=== PATIENT | female | born 1970 | race Two or more races ===

== ENCOUNTER → 2017-12-08 | Outpatient (CLI) | payer BC ==
[~2017-12-08] MED LIST: ACET-1600 PO; ALPR0.25 PO; ALPR0.5T6 PO; BIFI4CAP PO; CHLO1CAP PO; CHOL500045 PO; CHOL500050 PO; OMEP40CA6 PO; TURMERIC PO; VARE1TAB21 PO
== END | disposition home or self-care (01) ==
LOC: STAR 14:57
PROVIDERS: ATTEND Specialist
DX: Z02.9 Encounter for administrative examinations, unspecified (principal)

== ENCOUNTER 2017-12-12 07:26 | Day surgery (SDC) | payer BC ==
[~2017-12-12] VITALS: Ht 165.1 cm; Wt 80.0 kg
[~2017-12-12 07:26] MED LIST changes: +BUPIVACAINE 0.25% ONE; +SILVER NITRATE STICK TP ONE
[2017-12-12] MEDS ORDERED: LACTATED RINGERS 1,000 ML IV SCH (07:42)
[2017-12-12 07:59] VITALS: BP 128/84
[2017-12-12] MEDS ORDERED: ACETAMINOPHEN 500 MG TABLET PO ONE (08:00)
[2017-12-12] MEDS ORDERED: ONDANSETRON ODT 8 MG PO ONE (08:00)
[2017-12-12] MEDS ORDERED: PROPOFOL 10 MG/ML, 20ML ONE (08:13)
[2017-12-12] MEDS ORDERED: MIDAZOLAM 1 MG/ML, 2ML ONE (08:13)
[2017-12-12] MEDS ORDERED: FENTANYL PF 100 MCG/2ML ONE ×2 (08:13→09:18)
[2017-12-12] MEDS ORDERED: LIDOCAINE-MPF 2% ,5ML ONE (08:14)
[2017-12-12] MEDS ORDERED: CEFAZOLIN 1,000 MG ONE ×2 (08:14)
[2017-12-12] MEDS ORDERED: EPINEPHRINE 1 MG/ML, 1ML INFIL ONE (09:08)
[2017-12-12] MEDS ORDERED: KETOROLAC 30 MG/1 ML ONE (09:18)
[2017-12-12] MEDS ORDERED: HYDROmorphone 1 MG/ML, 1ML IV PRN (09:30)
[2017-12-12] MEDS ORDERED: OXYcodone 5 MG/5 ML ORAL.SOL UDC PO PRN (09:30)
[2017-12-12] MEDS ORDERED: EPHEDRINE 50 MG/ML, 1ML IVPush PRN (09:30)
[2017-12-12] MEDS ORDERED: DIPHENHYDRAMINE 50 MG/ML, 1ML IVPush PRN (09:30)
[2017-12-12] MEDS ORDERED: MEPERIDINE/PF 25MG/0.5ML IVPush PRN (09:30)
[2017-12-12] MEDS ORDERED: hydrALAzine 20 MG/ML, 1ML IV PRN (09:30)
[2017-12-12] MEDS ORDERED: MIDAZOLAM 1 MG/ML, 2ML IV PRN (09:30)
[2017-12-12] MEDS ORDERED: FENTANYL PF 100 MCG/2ML IV PRN (09:30)
[2017-12-12] MEDS ORDERED: PROCHLORPERAZINE 5 MG/ML, 2ML IV PRN (09:30)
[2017-12-12] MEDS ORDERED: LORazepam 2 MG/ML, 1ML IVPush PRN (09:30)
[2017-12-12] MEDS ORDERED: MORPHINE SULFATE 4 MG/ML, 1ML IVPush PRN (09:30)
[2017-12-12] MEDS ORDERED: ALBUTEROL SULFATE 2.5 MG/3 ML NPPB PRN (09:30)
[2017-12-12] MEDS ORDERED: LABETALOL 5MG/ML, 20ML IV PRN (09:30)
[2017-12-12] MEDS ORDERED: MEPERIDINE/PF 50 MG/ML ONE (09:36)
[2017-12-12] MEDS ORDERED: OXYcodone 5 MG/5 ML ORAL.SOL UDC ONE (09:37)
[2017-12-12] MEDS ORDERED: SCOPOLAMINE PATCH, 1.5MG PATCH.TD72 TD ONE ×2 (10:24→10:30)
[2017-12-12] MEDS ORDERED: OXYcodone/APAP 5/325MG TABLET PO PRN (14:30)
[2017-12-12] MEDS ORDERED: SUCCINYLCHOLINE 20 MG/ML, 10ML ONE (16:05)
== END 2017-12-12 14:45 | disposition home or self-care (01) ==
LOC: OUT 07:26
PROVIDERS: ATTEND Specialist
DX: D27.1 Benign neoplasm of left ovary (principal); N80.1 Endometriosis of ovary; N73.6 Female pelvic peritoneal adhesions (postinfective); F17.210 Nicotine dependence, cigarettes, uncomplicated; K21.9 Gastro-esophageal reflux disease without esophagitis; Z90.710 Acquired absence of both cervix and uterus; Z98.890 Other specified postprocedural states; Z88.8 Allergy status to other drugs, medicaments and biological substances
CPT/HCPCS: 58661; 88305; J0171; J0330; J1885; J2175; J2250; J2704; J3010; J3490; J7120; Q0162; J0690